=== PATIENT | male | born 1975 | race American Indian/Alaskan Native ===

== ENCOUNTER 2017-03-03 12:44 | Emergency (ER) | payer OTHER ==
[2017-03-03 13:06] VITALS: BP 139/93
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
--- NOTE | 2017-03-03 13:57 | XRay Report ---
LEFT HAND, 3 views: History: Injury. Limited nonstandard images were obtained. Severe deformity is suggested at the base of the index finger. This presumably represents a comminuted fracture. The remaining fingers and metacarpals are intact and unremarkable. There is severe soft tissue swelling. IMPRESSION: Fracture, proximal phalanx, second digit.
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
== END 2017-03-03 17:11 | disposition home or self-care (01) ==
LOC: ED 12:44
DX: S62.641A Nondisplaced fracture of proximal phalanx of left index finger, initial encounter for closed fracture (principal); Y04.0XXA Assault by unarmed brawl or fight, initial encounter; Y93.89 Activity, other specified; Y92.89 Other specified places as the place of occurrence of the external cause; Y99.8 Other external cause status